=== PATIENT | female | born 1965 | race Caucasian/White ===

== ENCOUNTER → 2023-06-16 14:29 | Outpatient (REF) | payer OTHER, SELFPAY | LOC: WDC 14:29 | PROVIDERS: ATTENDING PHYSICIAN Obstetrics & Gynecology; FAMILY PHYSICIAN Internal Medicine | DX: Z12.31 Encounter for screening mammogram for malignant neoplasm of breast (principal) | CPT/HCPCS: 77063; 77067 ==

== ENCOUNTER → 2024-07-14 18:24 | Outpatient (REF) | payer OTHER, SELFPAY | LOC: WDC 18:24 | PROVIDERS: ATTENDING PHYSICIAN Obstetrics & Gynecology; FAMILY PHYSICIAN Internal Medicine | DX: Z12.31 Encounter for screening mammogram for malignant neoplasm of breast (principal) | CPT/HCPCS: 77063; 77067 ==

== ENCOUNTER 2025-03-18 18:19 | Emergency (ER) | payer OTHER, SELFPAY ==
[2025-03-18 18:24] VITALS: BP 135/89
[2025-03-18 20:43] VITALS: BMI 22.0
--- NOTE | 2025-03-18 21:22 | ED.GENMED ---
History of Present Illness
General
Chief Complaint: Visual Problem
Source: patient
Time Seen by Provider: 03/18/25 20:53
History of Present Illness
History of Present Illness:
60-year-old female with past medical history of asthma presents to the emergency department for evaluation after she started noticed a small floater in her right eye yesterday, today floater much bigger and causing a little bit of visual
disturbance/blurred vision. She denies any pain associated with this. No tearing or discharge. Denies any history of similar. Patient wears glasses to drive but otherwise no glasses or contact lenses. Denies any headaches. No other concerns
presently.
Past History
Past History
ED Past Medical History: Asthma
ED Past Surgical History: None
Social History
Tobacco: Non-smoker
Alcohol: Occasional
Drug: None
Personal:
Living: with family
Review of Systems
Review of Systems
All Other Systems: ROS reviewed and negative except as documented in HPI and ROS
Phy Exam
Physical Exam
Physical Exam:
GENERAL: Alert , in no apparent distress
EYE: conjunctiva clear, pupils 3mm b/l, EOMI, no erythema, no drainage
VA: L 20/25, R 20/20, B 20/16
TONOMETRY: R 19, L 17
Head: Normocephalic atraumatic
NECK: Supple,
ENT: mmm.
LUNGS: no acute respiratory distress
NEUROLOGICAL: Alert and oriented
SKIN: Warm and dry, skin intact.
MUSCULOSKELETAL: well perfused.
PSYCH: Normal and appropriate interaction.
Scores
Heart Failure Risk
Heart Failure Risk Score: Not Applicable
Heart Score for Chest Pain Patients
STEMI patient?: Not applicable
Withdrawal Assessment of Alcohol
Withdrawal Assessment Completed?: Not applicable
Course
Orders/Labs/Results
Orders:
Orders
03/18/25 20:53
Visual Acuity- Treatment ONCE
Vital Signs
Initial and Last Documented VS:
Initial Vital Signs
Temp Pulse Resp BP Pulse Ox
97.7 F 80 18 135/89 97
03/18/25 18:24 03/18/25 18:24 03/18/25 18:24 03/18/25 18:24 03/18/25 18:24
Last Documented Vital Signs
Temp Pulse Resp BP Pulse Ox
97.7 F 78 18 135/89 99
03/18/25 18:24 03/18/25 21:30 03/18/25 18:24 03/18/25 18:24 03/18/25 21:30
MDM/Problems Addressed
Differential Diagnosis Includes:
Retinal detachment
Viterous humor leak
CVA/TIA
GCA
No concern for FB/corneal abrasion/ulceration
MDM/Problems Addressed:
60-year-old female presenting to the ER for evaluation of painless visual disturbance to the right eye noting floaters over the last 24 hours. No other associated symptoms. Exam reassuring. I discussed the case with on-call truck rental clerk, .
Rani, he will see the patient tomorrow in office at 1:45 PM for further evaluation. Information for office given to patient. She will call office in the morning to verify her information and confirm appointment time.
*Pulse Oximetry
SaO2: 97
Oxygen Mode of Delivery: Room air
Patient hypoxic: no
*Critical Care Note
Total Time (30-74mins, 75-104mins- exclusive of procedures): Not Applicable
Patient Management
Discussion with other providers: [employer] Department Supervisor
ED Attending Note
-
Portions of this chart may have been created with voice recognition software.� Occasional wrong word or��sound alike� substitutions may have occurred due to the inherent limitations of voice recognition software.
Discharge Plan
Departure
Patient Disposition: Home (Routine Discharge)
Date of Disposition: 03/18/25
Time of Disposition: 21:22
Patient with high blood pressure during this ER visit?: Yes
Discharge Problem:
Subjective visual disturbance of right eye
Instructions: Floaters in the Eye
Referrals:
Sonia Wright MD [Family Provider, Internal Medicine]
Francisco Saravia MD [Active, Ophthalmology]
Referral Note: Call in the morning to confirm appointment time. 1:45pm to see Dr. Saravia
Interventions
Interventions:
*Risk Screen - Suicide Last Done: 03/18/25 18:24
*General Assessment Last Done: 03/18/25 20:43
*Neglect/Abuse Screening Last Done: 03/18/25 20:43
*ED COVID-19 Vaccine History Last Done: 03/18/25 20:43
*ED Influenza Vaccine History Last Done: 03/18/25 18:24
[facility] Fall Risk Assessment Tool Last Done: 03/18/25 20:43
*Nursing Disposition Last Done: 03/18/25 21:30
ED- Neurological Assessment Last Done: 03/18/25 20:43
ED-EENT Assessment Last Done: 03/18/25 20:43
ED Swallowing Screen Last Done: 03/18/25 20:00
Discharge Date and Time
Discharge Date/Time: 03/18/25 21:30
Print Language: MEXICAN
== END 2025-03-18 21:30 | disposition home or self-care (01) ==
LOC: EMR 18:19
PROVIDERS: EMERGENCY PHYSICIAN Emergency Medicine; FAMILY PHYSICIAN Internal Medicine
DX: H53.10 Unspecified subjective visual disturbances (principal); J45.909 Unspecified asthma, uncomplicated
CPT/HCPCS: 99282